=== PATIENT | female | born 1995 | race Two or more races ===

== ENCOUNTER → 2017-11-11 | Outpatient (CLI) | payer OTHER ==
[~2017-11-11] MED LIST: AMOX1TAB5 PO; CLARITIN10 MG PO; IOPHEN DM-100 MG/5 M PO; KEFLEX500 MG PO
== END | disposition home or self-care (01) ==
LOC: PPHC LAB 15:30
DX: Z02.0 Encounter for examination for admission to educational institution (principal)

== ENCOUNTER → 2017-11-11 | Outpatient (CLI) | payer OTHER | END | disposition home or self-care (01) | LOC: PPH VACUNA 15:24 | DX: Z23 Encounter for immunization (principal) ==

== ENCOUNTER → 2017-11-19 10:04 | Outpatient (CLI) | payer OTHER ==
[~2017-11-19] VITALS: Ht 152.4 cm; Wt 38.6 kg
== END | disposition home or self-care (01) ==
LOC: PPHC 10:04
DX: Z00.00 Encounter for general adult medical examination without abnormal findings (principal)